=== PATIENT | female | born 1975 | race Caucasian/White ===

== ENCOUNTER 2023-07-19 22:41 | Emergency (ER) | payer SELFPAY ==
[~2023-07-19] VITALS: Ht 154.9 cm; Wt 88.9 kg
[2023-07-19 22:52] VITALS: BP 131/82; PULSE 94; RESP 18; TEMP 97.6; O2SAT 98
[2023-07-20] MEDS ORDERED: KETOROLAC 15 MG/ML VIAL IM ONE (00:45)
[2023-07-20] MEDS ORDERED: ACETAMINOPHEN 325 MG TAB PO ONE (00:45)
[2023-07-20] MEDS ORDERED: ONDANSETRON 4 MG ODT PO ONE (00:45)
[2023-07-20 02:29] LABS: ALANINE AMINOTRANSFERASE 34 U/L (12-78); ALBUMIN 3.7 g/dL (3.4-5.0); ALKALINE PHOSPHATASE 118 U/L (50-136); ANION GAP 13.2 (8-16); ASPARTATE AMINOTRANSFERASE 16 U/L (15-37); BASOPHILS # (AUTO) 0.1 K/uL (0.00-0.22); BASOPHILS % (AUTO) 0.5 % (0.0-2.0); CALCIUM 8.4 mg/dL (8.5-10.1); CARBON DIOXIDE 27.3 mmol/L (21-32); CHLORIDE 104 mmol/L (98-107); CREATININE 0.9 mg/dL (0.6-1.3); EOSINOPHILS # (AUTO) 0.2 K/uL (0-0.4); GFR ARICAN-AMERICAN 86 mL/min (>90); GFR NON ARICAN-AMERICAN 71 mL/min (>90); GLUCOSE 105 mg/dL (74-106); HEMOGLOBIN 14.4 g/dL (12.0-16.0); LYMPHOCYTES # (AUTO) 4.8 K/uL (2.5-16.5); MEAN CORPUSCULAR HEMOGLOBIN 31 pg (27-31); MEAN CORPUSCULAR HGB CONC 35 g/dL (33-37); MEAN CORPUSCULAR VOLUME 87.7 fL (80-94); MONOCYTES # (AUTO) 0.8 K/uL (0.8-1.0); MONOCYTES % (AUTO) 6.6 % (1.7-9.3); NEUTROPHILS # (AUTO) 5.5 K/uL (1.8-7.7); NEUTROPHILS % (AUTO) 48.9 % (42.2-75.2); PLATELET COUNT (AUTO) 329 K/uL (140-450); POTASSIUM 4.5 mmol/L (3.5-5.1); RED BLOOD CELL COUNT(AUTO) 4.68 MIL/uL (4.20-5.40); RED CELL DISTRIBUTION WIDTH 13.7 % (11.6-13.7); SODIUM SERUM 140 mmol/L (136-145); TOTAL BILIRUBIN 0.4 mg/dL (0.0-1.0); TOTAL PROTEIN, SERUM 7.1 g/dL (6.4-8.2); UREA NITROGEN, BLOOD 10 mg/dL (7-18); WHITE BLOOD COUNT (AUTO) 11.3 K/uL (4.8-10.8)
== END 2023-07-20 01:24 | disposition left against medical advice (07) ==
LOC: MED 22:41
DX: S81.032A Puncture wound without foreign body, left knee, initial encounter (principal); S61.432A Puncture wound without foreign body of left hand, initial encounter; S09.90XA Unspecified injury of head, initial encounter; R11.0 Nausea; R53.1 Weakness; W01.198A Fall on same level from slipping, tripping and stumbling with subsequent striking against other object, initial encounter; Y93.89 Activity, other specified; Y92.89 Other specified places as the place of occurrence of the external cause; Y99.8 Other external cause status
CPT/HCPCS: 36415; 70450; 73130; 73562; 80053; 84484; 85025; 99284; Q0162; J1885

== ENCOUNTER 2023-07-20 15:51 | Emergency (ER) | payer SELFPAY ==
[~2023-07-20] VITALS: Ht 157.5 cm; Wt 86.9 kg
[2023-07-20 16:22] VITALS: BP 110/86; PULSE 89; RESP 18; TEMP 97.9; O2SAT 99
[2023-07-20 17:35] VITALS: BP 112/86; PULSE 82; RESP 18; TEMP 97.9; O2SAT 99
== END 2023-07-20 17:35 | disposition home or self-care (01) ==
LOC: MED 15:51
DX: S06.0X0A Concussion without loss of consciousness, initial encounter (principal); S63.92XA Sprain of unspecified part of left wrist and hand, initial encounter; S83.92XA Sprain of unspecified site of left knee, initial encounter; W01.198A Fall on same level from slipping, tripping and stumbling with subsequent striking against other object, initial encounter; Y92.89 Other specified places as the place of occurrence of the external cause; Y93.89 Activity, other specified; Y99.8 Other external cause status
CPT/HCPCS: 99282